=== PATIENT | female | born 1955 | race African-American/Black ===

== ENCOUNTER 2022-03-02 15:13 | Emergency (ER) | payer MEDICARE, OTHER ==
[2022-03-02] MEDS ORDERED: Ondansetron ODT 4 MG TAB ONE (15:48)
[2022-03-02] MEDS ORDERED: Oseltamivir 75 MG CAP ONE (15:48)
== END 2022-03-02 16:02 | disposition home or self-care (01) ==
LOC: NAV ERS 15:13
DX: J10.1 Influenza due to other identified influenza virus with other respiratory manifestations (principal); I10 Essential (primary) hypertension; E11.9 Type 2 diabetes mellitus without complications; E78.5 Hyperlipidemia, unspecified
CPT/HCPCS: 87804; 99283; Q0162